=== PATIENT | male | born 1950 | race Caucasian/White ===

== ENCOUNTER 2023-09-24 08:38 | Outpatient (CLI) | payer OTHER | END 2023-09-24 08:39 | disposition home or self-care (01) | LOC: CSHWCC 08:38 | PROVIDERS: ATTEND Nurse Practitioner Family | DX: E11.622 Type 2 diabetes mellitus with other skin ulcer (principal); L98.499 Non-pressure chronic ulcer of skin of other sites with unspecified severity; C44.622 Squamous cell carcinoma of skin of right upper limb, including shoulder; C44.42 Squamous cell carcinoma of skin of scalp and neck; C44.722 Squamous cell carcinoma of skin of right lower limb, including hip; C44.629 Squamous cell carcinoma of skin of left upper limb, including shoulder | CPT/HCPCS: 97597; 97598; 99204; G0463 ==

== ENCOUNTER 2023-10-11 13:21 | Outpatient (CLI) | payer OTHER | END 2023-10-11 13:22 | disposition home or self-care (01) | LOC: CSHWCC 13:21 | PROVIDERS: ATTEND Nurse Practitioner Family | DX: C44.622 Squamous cell carcinoma of skin of right upper limb, including shoulder (principal); C44.629 Squamous cell carcinoma of skin of left upper limb, including shoulder; C44.42 Squamous cell carcinoma of skin of scalp and neck; C44.722 Squamous cell carcinoma of skin of right lower limb, including hip; E11.622 Type 2 diabetes mellitus with other skin ulcer | CPT/HCPCS: 97597; 97598 ==

== ENCOUNTER 2023-12-10 08:15 | Outpatient (CLI) | payer OTHER | END 2023-12-10 08:16 | disposition home or self-care (01) | LOC: CSHWCC 08:15 | PROVIDERS: ATTEND Nurse Practitioner Family | DX: E11.622 Type 2 diabetes mellitus with other skin ulcer (principal); C44.622 Squamous cell carcinoma of skin of right upper limb, including shoulder; C44.629 Squamous cell carcinoma of skin of left upper limb, including shoulder; C44.42 Squamous cell carcinoma of skin of scalp and neck; C44.722 Squamous cell carcinoma of skin of right lower limb, including hip | CPT/HCPCS: 97597; 97598 ==

== ENCOUNTER 2024-01-18 15:42 | Outpatient (CLI) | payer OTHER | END 2024-01-18 15:43 | disposition home or self-care (01) | LOC: CSHWCC 15:42 | PROVIDERS: ATTEND Nurse Practitioner Family | DX: E11.622 Type 2 diabetes mellitus with other skin ulcer (principal); C44.622 Squamous cell carcinoma of skin of right upper limb, including shoulder; C44.629 Squamous cell carcinoma of skin of left upper limb, including shoulder; C44.42 Squamous cell carcinoma of skin of scalp and neck; C44.722 Squamous cell carcinoma of skin of right lower limb, including hip ==